=== PATIENT | female | born 1980 | race Caucasian/White ===

== ENCOUNTER 2023-11-21 17:15 | Emergency (ER) | payer BC, SELFPAY ==
--- NOTE | 2023-11-21 17:30 | RT.EKG_ITS ---
APPROVED REPORT Exam: Resting ECG Reason for Exam: dizziness Patient Location: E HR:109 bpm ECG Measurements Heart Rate 109 AXIS SD 156 P 42 QRSd 83 QRS 35 QT 355 T 8 QTc 478 Conclusion Sinus tachycardia...rate> 99 Probable left atrial enlargement...P >50mS, <-0.10mV V1
[2023-11-21 17:31] VITALS: BP 200/107; PULSE 124; RESP 20; TEMP 36.3; O2SAT 100
[2023-11-21 17:45] VITALS: BP 181/83; PULSE 105; RESP 16; O2SAT 98
--- NOTE | 2023-11-21 18:02 | ED.GENADUL_ITS ---
Discharge Plan Disposition Patient Disposition: Home Condition: Stable Discharge Details Clinical Impression: Panic attack Primary Care Provider: Unknown,Unknown ED Provider: Tuan Rojas Home Meds and New Rx's Prescriptions: Continued hydroxyzine HCl 10 mg tablet 10 mg PO QHS PRN tacrolimus [Protopic] 0.03 % ointment 1 applic topical DAILY PRN amlodipine 2.5 mg tablet 2.5 mg PO DAILY triamcinolone acetonide 1 applic topical DAILY PRN Discharge Instructions Additional Instructions: Your blood work did not show any concerning findings today Follow-up with your primary care provider within 1 to 2 weeks especially if you are continuing to have symptoms If you feel more ill or have new symptoms such as severe chest pain return to the emergency department for reevaluation HPI General Mode of arrival: ambulatory . Date/Time Provider Initiated Documentation: 11/21/23 17:44 . Limitations to Documentation: no limitations . Information obtained by: patient . History of Present Illness 43 year old F presents to the emergency department with the chief complaint of ?panic attack, described as moderate, Patient started experiencing this hour(s) (1) and it has been now resolved. No relieving factors improve symptom(s), No exacerbating factors reported . Patient notes denies chest pain and fever/chills. Related Data Home Medications ?Medication ?Instructions ?Recorded ?Confirmed amlodipine 2.5 mg tablet 2.5 mg PO DAILY 11/21/23 11/21/23 hydroxyzine HCl 10 mg tablet 10 mg PO QHS PRN 11/21/23 11/21/23 tacrolimus 0.03 % topical ointment 1 applic topical DAILY PRN 11/21/23 11/21/23 (Protopic) triamcinolone acetonide 1 applic topical DAILY PRN 11/21/23 11/21/23 Allergies Allergy/AdvReac Type Severity Reaction Status Date / Time No Known Allergies Allergy Verified 11/21/23 18:04 General Stated Complaint: Dizzy/Sync ISABEL: 2 Review of Systems All systems reviewed & are unremarkable except as noted in HPI and below Constitutional Constitutional: Denies chills, Denies fever(s) and Denies weakness Cardiovascular Cardiovascular: Denies chest pain and Denies dyspnea Respiratory Respiratory: Denies cough and Denies dyspnea Gastrointestinal Gastrointestinal: Denies abdominal pain and Denies vomiting Musculoskeletal Musculoskeletal: Denies joint swelling Neurologic Neurologic: Denies weakness Exam Const General: no acute distress Orientation: alert HENMT Head: normal to inspection Ears: external ears normal General nose exam: external nose normal Mouth: moist mucous membranes Eyes General: appearance normal, both eyes and all related structures Neck Neck: normal visual inspection Resp Effort & Inspection: normal respiratory effort and able to speak in complete sentences Cardio Rate: regular rate GI Palpation: soft and nontender Skin General skin exam: no rashes or lesions noted Neuro General: patient alert and patient oriented x3 Extrem General: normal to inspection Psych Mental Status: mental status grossly normal Course Vital Signs Vital signs: Vital Signs Temperature 36.3 C L 11/21/23 17:31 Pulse 124 H 11/21/23 17:31 Respiratory Rate 20 11/21/23 17:31 Blood Pressure 200/107 H 11/21/23 17:31 Pulse Oximetry 100 11/21/23 17:31 Temperature 36.3 C L 11/21/23 17:31 Pulse 105 H 11/21/23 17:45 Respiratory Rate 16 11/21/23 17:45 Respiratory Effort Normal, Non-Labored 11/21/23 17:45 Respiratory Depth Normal 11/21/23 17:45 Respiratory Pattern Normal 11/21/23 17:45 Blood Pressure 181/83 H 11/21/23 17:45 Blood Pressure Position Sitting 11/21/23 17:31 Pulse Oximetry 98 11/21/23 17:45 Oxygen Delivery Method Room Air 11/21/23 17:45 Oxygen Flow Rate 0 11/21/23 17:45 Pain Level 0 11/21/23 17:31 Medical Decision Making 43-year-old female who states she has a history of panic attacks and anxiety comes in after she was watching TV after feeling well all day when she felt nauseous, tremulous and flushed. She denies any chest pain or difficulty breathing. She is currently asymptomatic. She is alert and oriented speaking clearly on exam. She has no focal deficits, clear lung sounds and soft nontender abdomen. Given rapid resolution of her symptoms suspect this could be a panic attack but will check a CBC, CMP, troponin and screen for PE with D- dimer though seems unlikely given no pleuritic pain and no evidence of DVT on exam. Patient asymptomatic, labs unremarkable, given lack of chest pain do not feel delta troponin indicated. She is stable for discharge and will follow-up with her primary care provider suspect this was a panic attack, return precautions given Differential Diagnosis Differential Diagnosis: Panic attack, anxiety, electrolyte abnormality, PE ECG Data Attestation: I personally reviewed and interpreted this ECG (s) as follows: Prior ECG tracings: not available for review Interpretation: Sinus tachycardia, rate of 109, OK 156, no STEMI Quality:SDOH Health Related Social Needs: No Data to Display PFSH All Active Problems (Updated 11/21/23 @ 19:11 by Tuan Rojas MD) Panic attack (Acute) Social History Smoking/Tobacco Use Status: Never Smoking risk assessment performed?: Yes Alcohol Intake: never Substance use type: does not use Housing: apartment Do you feel safe at home: Yes Do you feel safe in your relationship?: Yes
[2023-11-21 18:03] LABS: Abs Immature Grans 0.05 10^3/uL (0.0-0.06); Absolute Basophil Count 0.08 10^3/uL (0.0-0.2); Absolute Eosinophil Count 0.11 10^3/uL (0.0-0.7); Absolute Lymphocyte Count 2.39 10^3/uL (1.2-3.4); Absolute Neutrophil Count 7.21 10^3/uL (1.2-6.7); Basophils % 0.8 %; HCT 38.1 % (36.0-46.0); HGB 11.7 g/dL (11.2-15.7); Immature Grans % 0.5 %; Lymphocytes % 22.5 %; MCH 22.4 pg (27.0-33.0); MCHC 30.7 % (32.0-36.0); MCV 73 fL (80-95); MPV 9.1 fL (8.0-11.0); Monocytes % 7.5 %; Neutrophils % 67.7 %; Platelet Count 386 10^3/uL (130-400); RBC 5.23 10^6/uL (3.93-5.22); RDW 19.5 % (11.7-14.6); RDW-SD 49.3 fL; WBC 10.64 10^3/uL (4.4-10.8)
[2023-11-21 18:16] LABS: Anisocytosis 1+; Diff Comment RBC Morph Reviewed; Hypochromasia 1+; Microcytosis 1+
[2023-11-21 18:18] LABS: HCG Qual (Serum) Negative
[2023-11-21 18:25] LABS: ALT 29 U/L (14-59); AST 17 U/L (15-37); Alkaline Phosphatase 88 U/L (46-116); Anion Gap 11.5 mmol/L (3-11); BUN 7 mg/dL (7-18); CO2 26.5 mmol/L (21.0-32.0); CREATININE 0.8 mg/dL (0.55-1.02); Calcium 9.3 mg/dL (8.5-10.1); Chloride 101 mmol/L (98-107); Estimated GFR 94.87 (mL/min/1.73m2); Glucose 95 mg/dL (74-106); Magnesium 1.7 mg/dL (1.8-2.4); Potassium 3.1 mmol/L (3.5-5.1); Sodium 139 mmol/L (136-145); Troponin I < 50 ng/L (< or =60)
[2023-11-21 18:27] LABS: Bilirubin Negative (Negative); Blood Negative (Negative); Clarity Clear (Clear); Glucose Negative (Negative); Ketones 40 mg/dL (Negative); Leukocyte Esterase Negative (Negative); Nitrite Negative (Negative); Urobilinogen 0.2 mg/dL (Up to 0.2)
[2023-11-21 18:37] LABS: Bilirubin, Total 0.45 mg/dL (0.2-1.0)
[2023-11-21 18:40] LABS: D-Dimer 401 ng/mlFEU (<500)
[2023-11-21 19:17] VITALS: BP 162/72; PULSE 92; RESP 16; TEMP 37; O2SAT 99
== END 2023-11-21 19:22 | disposition home or self-care (01) ==
PROVIDERS: Emergency Provider Emergency Medicine
DX: F41.0 Panic disorder [episodic paroxysmal anxiety] (principal); R00.0 Tachycardia, unspecified
CPT/HCPCS: 36415; 80053; 82962; 93005; 99284; 81003; 83735; 84484; 84703; 85025; 85379; 93010; 99283